=== PATIENT | male | born 1960 | race Caucasian/White ===

== ENCOUNTER 2017-05-13 18:51 | Emergency (ER) | payer OTHER ==
[~2017-05-13] VITALS: Ht 175.3 cm; Wt 90.7 kg
[~2017-05-13 18:51] MED LIST: ACET325; ACET500 PO; ACETAMINOPHEN-CO5 ML PO; ACETAMINOPHEN500 MG PO; ALBU90OI; ALBU90OI INH; ALBU90OI6 INH; ALBU90OI61 INH; AMAN100 PO; ASPI81CH PO; AZAT50 PO; AZIT250 PO; BACL10 PO; BECL80OI INH; BENZ1 PO; BISA5EC PO; Benadryl25 MG PO; CAPS28.3TC TOP; CEPH500 PO; CHOL10002 PO; CIPR500 PO; CLON.5; CLON.5 PO; CLON2; COGENTIN; CYAN100; CYCL10 PO; DIAZ5; DIAZ5 PO; DIPH50 PO; DOC250 PO; DOCU100 PO; DOESNT KNOW MEDS; DOXE50; DOXY100 PO; ERGO50000 PO; Ferrous Sulfat325 M2; GABA100; HALDOL; HALO1; HALO1 PO; HALO2 PO; HALO5 PO; HYDACE5 PO; HYDPAM25; HYDPAM50 PO; Haloperidol10 MG; IBUP600 PO; IBUP800 PO; IRON325 MG PO; LEVFLO500; LEVFLO500 PO; LEVO750 PO; LIDO5TP TOP; LOPE2C; LOPE2C PO; Loperamide2 MG PO; MAGOXI400 PO; MELO7.5 PO; METCAR500 PO; METH10 PO; METR250; METR250 PO; METR500; METR500 PO; MULVITMIND PO; MULVITMINE; MULVITMINE PO; Miralax17 GM PO; NAPR375 PO; NAPR500 PO; NAPR550 PO; NYSTATIN1 EAC1 TOP; Naprosyn500 MG PO; OMEP20ER PO; OMEP40CA12 PO; ONDA8 PO; OXYACE5T; OXYACE5T PO; OXYC5 PO; PERIDEX15 ML MM; PERM5TC TOP; PERP8 PO; PHENY.5NI; PRED10 PO; PRED20 PO; PRENZ; PROACE100; PROAIR HFA 90 MCG IN; PROM25 PO; PROP65 PO; Prednisone20 MG PO; QVAR7.3 G1 IH; RAME8 PO; RANI150 PO; RISP1 PO; RXCEPH500 PO; RXSULTRIDS; RXSULTRIDS PO; RXTRAM50 PO; Requip0.5 MG PO; SOMA350 MG PO; STOOL SOFTNER; SULI150 PO; SULTRIDS; SULTRIDS PO; TAMS.4ER PO; TEMA15 PO; TEMA30 PO; TIOT18 INH; TOLN1TC TOP; TRAM50 PO; Triamcinolone A15 G3 TOP; [UNRECOGNIZED DRUG - OTHER]; [UNRECOGNIZED DRUG - REMARK]; [UNRECOGNIZED DRUG - REMARK]; [UNRECOGNIZED DRUG - REMARK]; [UNRECOGNIZED DRUG - REMARK]
[2017-05-13] MEDS ORDERED: EUCERIN ORIGIN250 ML (19:08)
[2017-05-13] MEDS ORDERED: Bactrim Ds Tab1 EACH PO (19:11)
[2017-05-13] MEDS ORDERED: TYLECOD3 PO (19:13)
[2017-05-13] MEDS ORDERED: BACL10 PO (19:16)
== END 2017-05-13 21:25 | disposition home or self-care (01) ==
LOC: ER 18:51
DX: F20.9 Schizophrenia, unspecified (principal); R19.7 Diarrhea, unspecified; Z88.8 Allergy status to other drugs, medicaments and biological substances; Z79.899 Other long term (current) drug therapy; J44.9 Chronic obstructive pulmonary disease, unspecified; F17.200 Nicotine dependence, unspecified, uncomplicated
CPT/HCPCS: 96372; 99283; Q0163

== ENCOUNTER 2017-06-30 12:02 | Day surgery (SDC) | payer OTHER ==
[~2017-06-30] VITALS: Ht 177.8 cm; Wt 94.5 kg
[~2017-06-30 12:02] MED LIST changes: +Bactrim Ds Tab1 EACH PO; +EUCERIN ORIGIN250 ML; +TYLECOD3 PO
== END 2017-06-30 16:20 | disposition home or self-care (01) ==
LOC: ORSCSDS 12:02
PROVIDERS: Internal Medicine Gastroenterology
PROC: 0DB68ZX Excision of Stomach, Via Natural or Artificial Opening Endoscopic, Diagnostic (ICD-10-PCS; principal; 2017-06-30 13:45)
PROC: 0DB98ZX Excision of Duodenum, Via Natural or Artificial Opening Endoscopic, Diagnostic (ICD-10-PCS; principal; 2017-06-30 13:45)
PROC: 0DJD8ZZ Inspection of Lower Intestinal Tract, Via Natural or Artificial Opening Endoscopic (ICD-10-PCS; principal; 2017-06-30 13:45)
DX: D50.9 Iron deficiency anemia, unspecified (principal); K50.90 Crohn's disease, unspecified, without complications; K31.7 Polyp of stomach and duodenum; K56.600 Partial intestinal obstruction, unspecified as to cause; K60.3 Anal fistula; J44.9 Chronic obstructive pulmonary disease, unspecified; F20.0 Paranoid schizophrenia; Z79.899 Other long term (current) drug therapy; F17.210 Nicotine dependence, cigarettes, uncomplicated
CPT/HCPCS: 88305; 88341; 88342; J7120

== ENCOUNTER → 2017-08-06 | Outpatient (CLI) | payer OTHER ==
[2017-08-06 12:47] LABS: Body Fluid Crystals NEG (NEGATIVE)
== END | disposition home or self-care (01) ==
LOC: LAB 12:01 → LAB SHORT 12:01
PROVIDERS: Nurse Practitioner Family
DX: M25.461 Effusion, right knee (principal)
CPT/HCPCS: 87070; 87075; 87205; 89060

== ENCOUNTER → 2017-10-21 | Outpatient (CLI) | payer OTHER | END | disposition home or self-care (01) | LOC: LAB 17:58 → LAB SHORT 17:58 | DX: L52 Erythema nodosum (principal) | CPT/HCPCS: 87070; 87075; 87077; 87147; 87186; 87205 ==

== ENCOUNTER → 2018-04-16 | Outpatient (CLI) | payer OTHER ==
[2018-04-16 13:42] LABS: BASOPHILS ABSOLUTE AUTO 0.08 K/mm3 (0.00-0.23); BASOPHILS PERCENT AUTO 1 % (0-2); EOSINOPHILS ABSOLUTE AUTO 0.24 K/mm3 (0.00-0.68); EOSINOPHILS PERCENT AUTO 2 % (0-6); Hematocrit 38.5 % (37.0-53.0); Hemoglobin 11.9 g/dL (13.5-17.5); IMMATURE GRAN ABSOLUTE AUTO 0.02 K/mm3 (0.00-0.10); IMMATURE GRAN PERCENT AUTO 0 % (0-1); LYMPHOCYTES ABSOLUTE AUTO 2.46 K/mm3 (0.84-5.20); LYMPHOCYTES PERCENT AUTO 20 % (21-46); MONOCYTES ABSOLUTE AUTO 0.98 K/mm3 (0.16-1.47); MONOCYTES PERCENT AUTO 8 % (4-13); Mean Corpuscular HGB Conc 30.9 g/dL (31.5-36.5); Mean Corpuscular Volume 84 fL (80-100); Mean Platelet Volume 10.6 fL (9.1-12.4); NEUTROPHILS ABSOLUTE AUTO 8.43 K/mm3 (1.96-9.15); NEUTROPHILS PERCENT AUTO 69 % (41-73); Platelet Count 315 K/mm3 (150-400); RDW Coefficient Variation 17.3 % (11.7-14.2); RDW Standard Deviation 53.4 fL (35.1-46.3); Red Blood Cell Count 4.58 M/mm3 (4.30-5.90); White Blood Cell Count 12.21 K/mm3 (4.00-11.30)
[2018-04-16 14:08] LABS: Percent Saturation 13.6 % (20.0-50.0)
[2018-04-16 14:28] LABS: Alanine Aminotransfer (ALT/SGP 31 U/L (12-78); Albumin/Globulin Ratio 0.5 (0.8-1.8); Alk Phos 151 U/L (50-136); Anion Gap 9 mmol/L (6-16); Aspartate Aminotrans (AST/SGOT 20 U/L (12-37); Bilirubin, Total 0.3 mg/dL (0.1-1.0); Blood Urea Nitrogen 19 mg/dL (8-24); Bun/Creatinine Ratio 19.4 (12.0-20.0); CHOL/HDL RATIO 3.2; CO2, Blood 26 mmol/L (21-32); Calcium, Blood 8.9 mg/dL (8.5-10.1); Chloride, Blood 103 mmol/L (98-108); Cholesterol 139 mg/dL (50-200); Creatinine, Blood 0.98 mg/dL (0.60-1.20); Globulin, Blood 6.1 g/dL (2.2-4.0); Glomerular Filtration Rate >60 (60-); Glucose, Blood 114 mg/dL (70-99); HDL Cholesterol 43 mg/dL (>39); LDL/HDL RATIO 1.7; Low Density Lipoprotein Chol 75 mg/dL (0-110); Potassium, Blood 4.3 mmol/L (3.5-5.5); Sodium, Blood 138 mmol/L (136-145); Total Protein, Blood 9.1 g/dL (6.4-8.2); Triglycerides 105 mg/dL (30-160); Very Low Density Lipoprot Chol 21 mg/dL (6-32)
== END ==
LOC: LAB 09:45 → LAB SHORT 09:45
PROVIDERS: Psychiatry & Neurology Psychiatry
DX: Z79.899 Other long term (current) drug therapy (principal); D63.8 Anemia in other chronic diseases classified elsewhere
CPT/HCPCS: 80053; 80061; 82728; 83036; 83540; 83550; 85025

== ENCOUNTER 2018-07-24 20:24 | Emergency (ER) | payer OTHER ==
[~2018-07-24] VITALS: Ht 175.3 cm; Wt 110.7 kg
[2018-07-24 21:15] LABS: BASOPHILS ABSOLUTE AUTO 0.05 K/mm3 (0.00-0.23); BASOPHILS PERCENT AUTO 0 % (0-2); EOSINOPHILS ABSOLUTE AUTO 0.15 K/mm3 (0.00-0.68); EOSINOPHILS PERCENT AUTO 1 % (0-6); Hematocrit 40.1 % (37.0-53.0); Hemoglobin 12.6 g/dL (13.5-17.5); IMMATURE GRAN ABSOLUTE AUTO 0.05 K/mm3 (0.00-0.10); IMMATURE GRAN PERCENT AUTO 0 % (0-1); LYMPHOCYTES ABSOLUTE AUTO 1.88 K/mm3 (0.84-5.20); LYMPHOCYTES PERCENT AUTO 14 % (21-46); MONOCYTES ABSOLUTE AUTO 0.76 K/mm3 (0.16-1.47); MONOCYTES PERCENT AUTO 6 % (4-13); Mean Corpuscular HGB 26.3 pg (26.0-34.0); Mean Corpuscular HGB Conc 31.4 g/dL (31.5-36.5); Mean Corpuscular Volume 84 fL (80-100); NEUTROPHILS ABSOLUTE AUTO 10.54 K/mm3 (1.96-9.15); NEUTROPHILS PERCENT AUTO 78 % (41-73); Platelet Count 279 K/mm3 (150-400); RDW Coefficient Variation 15.8 % (11.7-14.2); RDW Standard Deviation 47.8 fL (35.1-46.3); White Blood Cell Count 13.43 K/mm3 (4.00-11.30)
[2018-07-24 21:47] LABS: Alanine Aminotransfer (ALT/SGP 29 U/L (12-78); Albumin/Globulin Ratio 0.5 (0.8-1.8); Alk Phos 145 U/L (50-136); Anion Gap 11 mmol/L (6-16); Aspartate Aminotrans (AST/SGOT 20 U/L (12-37); Bilirubin, Total 0.2 mg/dL (0.1-1.0); Blood Urea Nitrogen 22 mg/dL (8-24); Bun/Creatinine Ratio 22.8 (12.0-20.0); CO2, Blood 23 mmol/L (21-32); Calcium, Blood 8.5 mg/dL (8.5-10.1); Chloride, Blood 102 mmol/L (98-108); Creatinine, Blood 0.97 mg/dL (0.60-1.20); Globulin, Blood 5.8 g/dL (2.2-4.0); Glomerular Filtration Rate >60 (60-); Glucose, Blood 168 mg/dL (70-99); Sodium, Blood 136 mmol/L (136-145); Total Protein, Blood 8.8 g/dL (6.4-8.2); Troponin I <0.015 ng/mL (0.000-0.040)
== END 2018-07-25 01:11 | disposition home or self-care (01) ==
LOC: ER 20:24
PROVIDERS: Emergency Medicine
DX: M54.5 Low back pain (principal); G89.29 Other chronic pain; M62.838 Other muscle spasm; J44.9 Chronic obstructive pulmonary disease, unspecified; F20.0 Paranoid schizophrenia; F17.210 Nicotine dependence, cigarettes, uncomplicated; Z79.899 Other long term (current) drug therapy
CPT/HCPCS: 71046; 74177; 80053; 84484; 85025; 93005; 93010; 99285-25; Q9967

== ENCOUNTER 2018-08-02 10:59 | Emergency (ER) | payer OTHER ==
[~2018-08-02] VITALS: Ht 175.3 cm; Wt 110.7 kg
[2018-08-02] MEDS ORDERED: QVAR REDIHALE10.6 G1 INH (11:57)
[2018-08-02] MEDS ORDERED: OMEPRAZOLE MAGN20 MG PO (11:58)
[2018-08-02] MEDS ORDERED: GENTEAL TEARS 015 M1 BOTHEYES (11:58)
[2018-08-02] MEDS ORDERED: HALO5 PO (11:59)
[2018-08-02] MEDS ORDERED: METR250 (11:59)
[2018-08-02] MEDS ORDERED: TIOT18 INH (11:59)
[2018-08-02] MEDS ORDERED: VITAMIN D-32000 UNIT PO (12:00)
[2018-08-02] MEDS ORDERED: PERIDEX15 ML MM (12:02)
[2018-08-02] MEDS ORDERED: DICL75ER PO (12:02)
[2018-08-02] MEDS ORDERED: Eucerin Creme454 GM TOP (12:02)
[2018-08-02] MEDS ORDERED: Triamcinolone A15 G3 TOP (12:03)
[2018-08-02] MEDS ORDERED: Ferrous Sulfat325 M2 PO (12:03)
[2018-08-02] MEDS ORDERED: MAGOXI400 PO (12:03)
[2018-08-02] MEDS ORDERED: GABA100 PO (12:03)
[2018-08-02] MEDS ORDERED: LOPE2C PO (12:04)
[2018-08-02] MEDS ORDERED: GABA300 PO (12:05)
[2018-08-02] MEDS ORDERED: TYLECOD3 PO (12:05)
[2018-08-02] MEDS ORDERED: TAMS.4ER PO (12:06)
[2018-08-02] MEDS ORDERED: TEMA30 PO (12:06)
== END 2018-08-02 12:40 | disposition home or self-care (01) ==
LOC: ER 10:59
DX: K42.9 Umbilical hernia without obstruction or gangrene (principal); G89.29 Other chronic pain; J44.9 Chronic obstructive pulmonary disease, unspecified; F17.210 Nicotine dependence, cigarettes, uncomplicated; Z88.8 Allergy status to other drugs, medicaments and biological substances; Z79.899 Other long term (current) drug therapy
CPT/HCPCS: 99283

== ENCOUNTER 2019-02-22 15:50 | Emergency (ER) | payer OTHER ==
[~2019-02-22] VITALS: Ht 175.3 cm; Wt 112.0 kg
[~2019-02-22 15:50] MED LIST changes: +DICL75ER PO; +Eucerin Creme454 GM TOP; +Ferrous Sulfat325 M2 PO; +GABA100 PO; +GABA300 PO; +GENTEAL TEARS 015 M1 BOTHEYES; +OMEPRAZOLE MAGN20 MG PO; +QVAR REDIHALE10.6 G1 INH; +VITAMIN D-32000 UNIT PO
[2019-02-22 17:54] LABS: Source, Urine Clean Catch
[2019-02-22 18:03] LABS: Bilirubin, Urine Neg (Neg); Blood, Urine Neg (Neg); Glucose Qualitative, Urine Neg (Neg); Ketones, Urine Neg (Neg); Leukocyte Esterase, Urine 2+ (Neg); Nitrite, Urine Neg (Neg); Protein, Urine Neg (Neg); Urobilinogen, Urine NORM (Normal)
[2019-02-22 18:09] LABS: Appearance, Urine Clear (Clear); Color, Urine Yellow (P-Yellow)
[2019-02-22 18:10] LABS: Bacteria Few /hpf; Red Blood Cells, Urine 0-2 /hpf (0-2); Squamous Epithelial Cells Not Seen /hpf (Few)
== END 2019-02-22 20:41 | disposition home or self-care (01) ==
LOC: ER 15:50
PROVIDERS: Physician Assistant
DX: K94.03 Colostomy malfunction (principal); Z88.8 Allergy status to other drugs, medicaments and biological substances; Z79.899 Other long term (current) drug therapy; J44.9 Chronic obstructive pulmonary disease, unspecified; D64.9 Anemia, unspecified; F20.0 Paranoid schizophrenia; F17.210 Nicotine dependence, cigarettes, uncomplicated
CPT/HCPCS: 73502; 81001; 87086; 99284-25